=== PATIENT | female | born 1945 | race Caucasian/White ===

== ENCOUNTER 2021-08-06 11:51 | Emergency (ER) | payer SELFPAY ==
[~2021-08-06] VITALS: Ht 152.4 cm; Wt 69.0 kg
[2021-08-06] MEDS ORDERED: metformin (12:02)
[2021-08-06] MEDS ORDERED: ACETAMINOPHEN 325MG TABLET PO ONE (12:45)
[2021-08-06 16:57] VITALS: BP 142/77
== END 2021-08-06 17:08 | disposition home or self-care (01) ==
LOC: ER 11:51
DX: S09.90XA Unspecified injury of head, initial encounter (principal); Y04.0XXA Assault by unarmed brawl or fight, initial encounter; Y93.89 Activity, other specified; Y92.89 Other specified places as the place of occurrence of the external cause; Y99.8 Other external cause status
CPT/HCPCS: 70486; 99285